=== PATIENT | female | born 1965 | race Caucasian/White ===

== ENCOUNTER 2017-03-04 17:19 | Emergency (ER) | payer OTHER ==
[~2017-03-04] VITALS: Ht 167.6 cm; Wt 82.0 kg
[2017-03-04] MEDS ORDERED: CLONIDINE 0.2MG TABLET PO ONE (18:45)
[2017-03-04] MEDS ORDERED: HYDROCODONE/ACETAMINOPHEN 5/325MG TABLET PO ONE (18:45)
[2017-03-04] MEDS ORDERED: IBUPROFEN 600MG TABLET PO ONE (18:45)
[2017-03-04 20:24] VITALS: BP 166/91
== END 2017-03-04 21:17 | disposition home or self-care (01) ==
LOC: ER 19:45
DX: S09.90XA Unspecified injury of head, initial encounter (principal); I10 Essential (primary) hypertension; V89.2XXA Person injured in unspecified motor-vehicle accident, traffic, initial encounter; Y93.89 Activity, other specified; Y92.89 Other specified places as the place of occurrence of the external cause; Y99.8 Other external cause status
CPT/HCPCS: 70450; 99284